=== PATIENT | male | born 1950 | race Caucasian/White ===

== ENCOUNTER 2020-09-23 14:52 | Emergency (ER) | payer MEDICARE, OTHER, SELFPAY ==
--- NOTE | ~2020-09-23 | XR_ITS ---
EXAMINATION: XR chest 2V DATE: 09/23/2020 15:38 INDICATION: Epigastric pain TECHNIQUE: PA and lateral views of the chest were obtained. COMPARISON: None FINDINGS: The lungs are clear with no focal airspace opacities, pulmonary edema, pleural effusion or pneumothor ax. The cardiomediastinal silhouette is normal. Calcified AP window lymph nodes consistent with old g ranulomatous disease. Moderate thoracic spondylosis with mild anterior wedging of a couple mid thorac ic vertebral bodies. There are bridging osteophytes at multiple levels in the spine, consistent with diffuse idiopathic skeletal hyperostosis (DISH). IMPRESSION: 1. No acute cardiopulmonary disease. Reviewed, dictated and finalized at location A.
--- NOTE | 2020-09-23 14:53 | ECG_ITS ---
Measurements Intervals [place] Rate: 59 P: 66 TN: 167 QRS: 56 QRSD: 98 T: 60 QT: 391 QTc: 389 Interpretive Statements SINUS BRADYCARDIA BORDERLINE ECG Electronically Signed On 09-23-2020 20:02:36 CDT by Rafita Song D.O.
[2020-09-23 14:54] VITALS: BP 134/71; PULSE 65; RESP 18; TEMP 37; O2SAT 98
[2020-09-23 15:14] LABS: Basophils Percent Auto 0.4 % (0.2-1.2); Eosinophils Absolute Auto 0.1 K/mm3 (0-0.3); Eosinophils Percent Auto 0.7 % (0-4.4); Hemoglobin 15.6 g/dL (14.0-18.0); Immature Granulocyte Absolute 0.04 K/mm3 (0.00-0.031); Immature Granulocyte Percent A 0.4 % (0-0.5); Lymphocytes Absolute Auto 1.19 K/mm3 (0.9-3.2); Lymphocytes Percent Auto 12.9 % (18.3-44.2); Mean Corpuscular HGB Conc 34.7 g/dl (32-36); Mean Corpuscular Hemoglobin 30.7 pg (26-34); Mean Corpuscular Volume 88.6 fl (80-100); Mean Platelet Volume 8.7 fl (7.4-10.4); Monocytes Absolute Auto 0.4 K/mm3 (0.1-0.6); Monocytes Percent Auto 4.8 % (2.6-8.5); Neutrophils Absolute Auto 7.5 K/mm3 (1.3-6.7); Neutrophils Percent Auto 80.8 % (45.5-73.1); Platelet Count Result 243 k/mm3 (150-375); Red Blood Count 5.08 M/mm3 (4.6-6.20); Red Cell Distribution Width 11.8 % (11.5-14.5); White Blood Count 9.2 K/mm3 (4.5-10.0)
[2020-09-23 15:20] VITALS: PULSE 60
[2020-09-23 15:23] LABS: Anion Gap 10 mmol/L (8-16); Blood Urea Nitrogen 17 mg/dL (9-20); Calcium 11.2 mg/dL (8.4-10.2); Carbon Dioxide 25 mmol/L (22-30); Chloride 101 mmol/L (98-107); Estimated CRCL calculation 82 ml/min; Estimated Glomerular Filt Rate > 60; Glucose 155 mg/dL (65-110); INR 0.9; Prothrombin Time 12.3 Seconds (11.1-14.7); Sodium 136 mmol/L (137-145)
[2020-09-23 15:24] LABS: Partial Thromboplastin Time 28.1 SECONDS (22.3-36.8)
[2020-09-23 15:25] VITALS: PULSE 56; RESP 12; O2SAT 98
[2020-09-23 15:30] VITALS: BP 121/68; PULSE 57; RESP 15; O2SAT 97
[2020-09-23 15:35] LABS: Troponin I < 0.012 ng/mL (0.000-0.034)
--- NOTE | 2020-09-23 15:35 | ED.CHESTPAIN ---
HPI - Chest Pain General Chief Complaint: Chest Pain Stated Complaint: chest pain x 18 hours Time Seen by Provider: 09/23/20 15:22 History of Present Illness HPI narrative: Patient presents with epigastric pain that started last night persisted throughout the evening and is still present but improved. Pain is a pressure sensation. Where the symptoms usually resolved with Tums or Gas-X however this episode did not so long to come in for evaluation. Denies any nausea or vomiting denies any lightheadedness denies any shortness of breath. Pain does not radiate anywhere there are no clear aggravating or alleviating factors Related Data Home Medications Medication Instructions Recorded Confirmed aspirin 81 mg chewable tablet 81 mg PO DAILY 08/10/19 08/28/20 atorvastatin 20 mg tablet 20 mg PO DAILY 08/10/19 08/28/20 lisinopril 10 mg tablet 10 mg PO DAILY 08/10/19 08/28/20 Allergies Allergy/AdvReac Type Severity Reaction Status Date / Time No Known Allergies Allergy Mild Verified 12/21/18 11:29 Review of Systems Review of Systems: CONSTITUTIONAL: Denies fever, chills, or sweats. EYES: Denies visual changes, redness, or discharge. ENT: Denies rhinorrhea, congestion, sore throat, or otalgia. CARDIOVASCULAR: Denies chest pain, palpitations, or edema. RESPIRATORY: Denies cough or dyspnea. GASTROINTESTINAL: Denies nausea, vomiting, or diarrhea. GENITOURINARY: Denies dysuria or hematuria. SKIN: Denies rash or itching. MUSCULOSKELETAL: Denies back pain, joint pain, or myalgia. NEUROLOGIC: Denies headache, numbness, dizziness, or weakness. PSYCHIATRIC: Denies anxiety or depression. All systems reviewed & are unremarkable except as noted in HPI and below PMFSH Past Medical History Medical History BMI 27.0-27.9,adult Chronic low back pain with right-sided sciatica Dupuytren's contracture of right hand Essential (primary) hypertension Hyperlipidemia Mixed hyperlipidemia Nocturia Overweight (BMI 25.0-29.9) Tobacco use disorder, continuous Surgical History Surgical History History of cholecystectomy Hx of hand surgery (~2019) Family History Family History Mother COPD (chronic obstructive pulmonary disease) Heart failure Father No problems noted. Sibling , 38 years old at time of Acute myocardial infarction Social History Social History Smoking status: Current every day smoker ( 8 cigars per week) Tobacco type: cigars Alcohol intake: current Drinks per week: 8 Alcohol use details: beer Substance use: never Substance use type: does not use Exam Narrative: GENERAL: Well-appearing, well-nourished, and in no acute distress. HEAD: Normocephalic, atraumatic. EYES: PERRLA and EOMI. ENT: Nares clear, no rhinorrhea or epistaxis. Mucous membranes moist. NECK: Supple. No masses. No JVD CHEST: Clear to auscultation. No respiratory distress. No wheezes rales or rhonchi HEART: Regular rate and rhythm. No murmur heard. Normal peripheral pulses. ABDOMEN: Mild tenderness with deep palpation epigastric area soft, nondistended, normal active bowel sounds. EXTREMITIES: Normal range of motion. No edema. SKIN: Warm, dry, no rash. NEURO: No focal deficits. Alert and oriented x3. PSYCH: Normal mood and affect. Course Reevaluation(s) Reevaluation #1: Reports feeling much improved after GI cocktail work-up and plan reviewed with patient Date: 09/23/20 Time: 16:39 Vital Signs Vital signs: Vital Signs Temperature 37.0 C 09/23/20 14:54 Pulse Rate 65 09/23/20 14:54 Respiratory Rate 18 09/23/20 14:54 Blood Pressure 134/71 09/23/20 14:54 Pulse Oximetry 98 09/23/20 14:54 Temperature 37.0 C 09/23/20 14:54 Pulse Rate 61 09/23/20 17:
[2020-09-23 16:11] LABS: Alanine Aminotransferase 31 U/L (4-50); Albumin Level 4.6 g/dL (3.5-5.1); Alkaline Phosphatase 74 U/L (38-126); Aspartate Amino Transferase 28 U/L (17-59); Lipase 41 U/L (23-300)
[2020-09-23] MEDS: MAG HYDROX/AL HYDROX/SIMETH 30 ML UDC PO (16:12)
[2020-09-23] MEDS: LIDOCAINE HCL 2% VISC SOLN 15 ML UDC 20 ML PO (16:12)
[2020-09-23] MEDS: SODIUM CHLORIDE 0.9% IV 500 ML 999 ML IV CONT (16:12)
[2020-09-23 16:17] VITALS: BP 128/74; PULSE 61; RESP 17; O2SAT 99
[2020-09-23 17:00] VITALS: BP 134/76; PULSE 61; RESP 17; O2SAT 98
== END 2020-09-23 17:17 | disposition home or self-care (01) ==
PROVIDERS: Emergency Medicine; Emergency Provider Emergency Medicine; PCP Family Medicine
DX: K29.70 Gastritis, unspecified, without bleeding (principal); I10 Essential (primary) hypertension; E78.2 Mixed hyperlipidemia; M72.0 Palmar fascial fibromatosis [Dupuytren]; E66.3 Overweight; Z68.26 Body mass index [BMI] 26.0-26.9, adult; F17.290 Nicotine dependence, other tobacco product, uncomplicated; Z79.82 Long term (current) use of aspirin; G89.29 Other chronic pain; M54.41 Lumbago with sciatica, right side
CPT/HCPCS: 36415; 71046; 80048; 80076; 83690; 84484; 85025; 85610; 85730; 93005; 96360; 99284; A9270; J7040

== ENCOUNTER 2022-01-10 00:53 | Day surgery (SDC) | payer MEDICARE, OTHER, SELFPAY ==
--- NOTE | 2021-12-31 13:32 | PC.NURSE ---
Report to the Outpatient Waiting Room, entrance under the green pavilion located off [facility], at time _0600 on date __01/10/22 . Planned Procedure Time: _0730 . Time changes happen often and if your time is changed the preop area will call you the afternoon before. - You and your visitor will be asked to self-screen and do not enter if you have any COVID symptoms. - Only one visitor is requested with a max of two and NO children visitors are allowed at this time. - The patient visitor may be requested to leave or wait in car when not with patient due to distancing restrictions. - A mask is optional within the hospital. Patients may have clear liquids (water, carbonated beverages, clear teas, apple juice) until 3 hours prior to surgery with a maximum of 20 ounces. - No food from midnight until time of surgery - Infants may have breast milk until 4 hours before surgery, formula 6 hours prior to surgery. - Children will be allowed to drink immediately following surgery. If applicable, please bring a bottle or sippy cup to assist with drinking. Juice, water, soda, and popsicles are readily available. For infants on formula, please bring formula the day of surgery. Pacifiers are allowed. Take the following medications with a SIP of water the morning of surgery: __NONE Medications to discontinue per physician NONE Date to take last dose Please no make-up, nail latvian, hairspray, perfume, deodorant, or body powder the day of surgery. No jewelry (including any body piercings) or valuables the day of surgery, leave them at home. Please take a shower or bath the night before, or the morning of, surgery with an antibacterial soap. Wear comfortable, loose fitting clothing. Children are encouraged to wear pajamas. - Jewelry must be removed prior to entering the operating room. Rings and piercings that are not removed may be cut off. - The hospital will not accept responsibility for valuables. - Please leave all valuables, including medications, at home the day of surgery. If you are going home after surgery, a licensed regional tanker truck driver must drive you home. - NO public transportation without another adult if you receive anesthesia. - We recommend that an adult stay with you for 24 hours following discharge. - We also recommend that you do not drive, make important decision, drink alcoholic beverages, or take any drugs that were not prescribed by your health care provider for at least 24 hours after your discharge time. For Pediatric surgeries, we recommend two adults accompany the child home. Follow any additional instructions given to you from your surgeon. If you or anyone in your household have experienced Covid symptoms in the past week, please notify your surgeon or the nurse liaison at the phone number below for possible testing. Telephone instructions given to ___PATIENT and asked if any additional questions and then verbalized understanding. Patient advised to call surgeon office or pre surgery nurse liaison [phone] if any additional questions.
[2021-12-31 13:36] VITALS: BMI 25.5
--- NOTE | 2022-01-06 18:52 | PM.IMHP ---
H&P: HPI History of Present Illness Date/Time: 01/06/22 18:52 Chief Complaint: Dupuytren's contracture of the right hand Narrative: Mr. Kelly is a 71-year-old male who has come for surgical treatment of 2 Dupuytren's contracture and the right 4th and 5th rays primarily. He underwent a left partial palmar fasciectomy for Dupuytren's disease in 2019 and was very pleased with the outcome. currently his right 4th and 5th metacarpophalangeal joints are contracted at least 90?. There are additional contractures of the proximal interphalangeal joints that are significant. He is reminded that several incisions may be necessary. There are risks for injury to the digital nerves and the tendons. There is also risk to the skin that may result in decreased sensation, stiffness, poor healing or new contractures. There may be a need for therapy to resolve some of these issues. There may also be a need for additional surgery to correct certain issues that might arise from this surgery. He would like to proceed. He will remain on his aspirin Review of Systems Review of Systems: All systems reviewed & are unremarkable except as noted in HPI and below ENT: Comments: hearing deficit PMFSH Past Medical History Medical History BMI 25.0-25.9,adult BMI 27.0-27.9,adult Chronic low back pain with right-sided sciatica Constipation Dupuytren's contracture of right hand Essential (primary) hypertension GERD (gastroesophageal reflux disease) Hyperlipidemia Mixed hyperlipidemia Nocturia Overweight (BMI 25.0-29.9) Tobacco use disorder, continuous Surgical History Surgical History History of cholecystectomy Hx of hand surgery (~2019) Family History Family History Mother COPD (chronic obstructive pulmonary disease) Heart failure Father No problems noted. Sibling , 38 years old at time of Acute myocardial infarction Social History Social History Smoking status: Current every day smoker Tobacco type: cigars Additional smoking assessment comments: CURRENTLY SMOKES CIGARS 2 X WK X 30 YRS.NEVER SMOKED CIGARETTES Alcohol intake: current Drinks per week: 4 Alcohol use details: beer Substance use: never Substance use type: does not use Living arrangements: with family Spiritual care concerns: No Meds Home Medications and Allergies Home Medications Medication Instructions Recorded Confirmed Type aspirin 81 mg chewable tablet 81 mg PO DAILY 08/10/19 12/31/21 History atorvastatin 20 mg tablet 20 mg PO DAILY 08/10/19 12/31/21 History lisinopril 10 mg tablet 10 mg PO DAILY 08/10/19 12/31/21 History famotidine 20 mg tablet (Pepcid) 20 mg PO DAILY 03/13/21 12/31/21 History polyethylene glycol 3350 17 17 g PO DAILY PRN constipation 09/18/21 12/31/21 History gram/dose oral powder (Miralax) nitroglycerin 0.4 mg sublingual 0.4 mg sublingual PRN PRN Chest 12/31/21 12/31/21 History tablet Pain Allergies Allergy/AdvReac Type Severity Reaction Status Date / Time morphine AdvReac Hallucinati Verified 12/31/21 13:20 ng Exam Const: General: cooperative, healthy appearing and no acute distress Nutritional Appearance: well nourished Orientation/consciousness: patient oriented x3 HENMT: Head: normal to inspection Ears: hearing grossly impaired Face and sinus: normal facial exam Chest: Chest palpation & inspection: normal inspection of the chest Resp: Effort & Inspection: normal respiratory effort Cardio: Rhythm: regular rhythm GI: Inspection: normal to inspection : General: Yes deferred Skin: Other: marked Dupuytren's cords of the right hand involving the 4th and 5th digits Neuro: General: patient oriented x3 and Normal ligh
[2022-01-10] VITALS (7 sets, daily range): BP systolic 109–136; BP diastolic 60–78; PULSE 48–58; RESP 10–18; TEMP 36.2–36.3; O2SAT 99–100
--- NOTE | 2022-01-10 05:58 | ECG_ITS ---
Measurements Intervals [place] Rate: 45 P: 90 [place]: 206 QRS: 46 QRSD: 101 T: 39 QT: 432 QTc: 377 Interpretive Statements MARKED SINUS BRADYCARDIA ABNORMAL ECG COMPARED TO ECG 09/23/2020 14:59:48 NO SIGNIFICANT CHANGES Electronically Signed On 01-10-2022 11:21:18 [employer] by Bart Stephenson M.D.
--- NOTE | 2022-01-10 07:04 | WPDANESEPPF ---
Anes - Initial Pre Proc Eval Procedure: Operation Date: 01/10/22 07:30 Proposed Procedures p Right Partial Palmar Fasciectomy Fourth and Fifth Digits - Ronald Hernandez MD Date/Time: 01/10/22 07:04 Surgeon: Ronald Hernandez MD Pre Op Diagnosis: Dupuytrens Contracture 4th & 5th Rays Rt Hand Patient Data Age: 71 Gender: M Height: 1.82 m Weight: 84.4 kg Allergies Allergy/AdvReac Type Severity Reaction Status Date / Time morphine AdvReac Hallucinati Verified 12/31/21 13:20 ng Home Medications Medication Instructions Recorded Confirmed Type aspirin 81 mg chewable tablet 81 mg PO DAILY 08/10/19 12/31/21 History atorvastatin 20 mg tablet 20 mg PO DAILY 08/10/19 12/31/21 History lisinopril 10 mg tablet 10 mg PO DAILY 08/10/19 12/31/21 History famotidine 20 mg tablet (Pepcid) 20 mg PO DAILY 03/13/21 12/31/21 History polyethylene glycol 3350 17 17 g PO DAILY PRN constipation 09/18/21 12/31/21 History gram/dose oral powder (Miralax) nitroglycerin 0.4 mg sublingual 0.4 mg sublingual PRN PRN Chest 12/31/21 12/31/21 History tablet Pain Patient hx anesthesia problems: none Family hx anesthesia problems: none Results Review: All pre-operative results and documents have been reviewed as part of the pre-operative evaluation. [facility] Past Medical History Medical History BMI 25.0-25.9,adult BMI 27.0-27.9,adult Chronic low back pain with right-sided sciatica Constipation Dupuytren's contracture of right hand Essential (primary) hypertension GERD (gastroesophageal reflux disease) Hyperlipidemia Mixed hyperlipidemia Nocturia Overweight (BMI 25.0-29.9) Tobacco use disorder, continuous Surgical History Surgical History History of cholecystectomy Hx of hand surgery (~2019) Family History Family History Mother COPD (chronic obstructive pulmonary disease) Heart failure Father No problems noted. Sibling , 38 years old at time of Acute myocardial infarction Social History Social History Smoking status: Current every day smoker Tobacco type: cigars Additional smoking assessment comments: CURRENTLY SMOKES CIGARS 2 X WK X 30 YRS.NEVER SMOKED CIGARETTES Alcohol intake: current Drinks per week: 4 Alcohol use details: beer Substance use: never Substance use type: does not use Living arrangements: with family Spiritual care concerns: No Anes - Eval Final PreProcedure Day of Procedure 01/10/22 07:04 Patient weight: overweight Heart: regular rate and rhythm Lungs: decreased breath sounds Airway: Mallampati scale class II Neurological: alert and oriented Last oral intake: >/= 8 hours ASA classification: III Emergent: no Anesthetic plan: proceed Anesthesia type and monitoring: general GIVS and standard monitoring Results Review: All pre-operative results and documents have been reviewed as part of the pre-operative evaluation. Informed Consent: The patient's anesthetic plan and its attendant risks and benefits were discussed with the patient/family/POA. Questions were solicited and answers provided to the satisfaction of the patient/family/POA.
[2022-01-10] MEDS: LACTATED RINGERS 1,000 ML 30 ML IV CONT ×2 (07:06→10:08)
--- NOTE | 2022-01-10 07:14 | WPDHPUPDATE1 ---
History and Physical Update Update Date/Time: 01/10/22 07:14 History and Physical has been reviewed, including an updated exam of the patient. There are NO changes in the patient's condition. Risks, benefits, and alternatives have been discussed and questions answered. Patient agrees to proceed with procedure.
[2022-01-10] MEDS: ceFAZolin SODIUM 1 GM VIAL 2 GM IV PUSH (09:07)
[2022-01-10] MEDS: LIDO 1%/EPINEPHRINE/PF 1:200,000 30 ML VIAL XX (09:43)
[2022-01-10] MEDS: BACITRACIN OINTMENT 15 GM TUBE 1 APPLIC TOPICAL (10:02)
--- NOTE | 2022-01-10 10:27 | W.PM.PROC2 ---
Procedure Note - Detailed Date of Procedure 01/10/22 Pre-op Diagnosis Dupuytrens Contracture 4th & 5th Rays Rt Hand Post-op Diagnosis Same Procedure Performed Right partial palmar fasciectomy with full-thickness skin graft 5 sq cm Surgeon Ronald Hernandez MD Support Architect Pat Molina Anesthesia General Description of Procedure The right 4th and 5th digits were marked on the patient in the holding area. He was taken to the operating room where he was placed supine on the operating table. Time-out was held confirmed. He was given general anesthesia and the right upper extremity was prepped and draped in usual fashion. The sites were carefully marked for incision. The wound area was locally infiltrated with 1% lidocaine with epinephrine. The extremity was exsanguinated and the tourniquet inflated to 250 mmHg. The incisions were made as designed. The skin flaps were carefully elevated fairly thinly. Neurovascular bundles were identified in all areas and preserved. The Dupuytren's fasciitis in the palm was excised. The 2nd incision was made as a volar midline incision in the small finger. Skin flaps were again elevated to both sides and the neurovascular bundles identified near the metacarpophalangeal joint. There was no significant spiral cording in this finger. The neurovascular bundles were identified out to the distal interphalangeal joint. The Dupuytren's fasciitis was removed. The digit extended well but lagged about 10? of extension. The A1 migue was incised which provided a small amount of increased extension. The ring finger had no cords beyond the metacarpophalangeal joint. The tourniquet was released and Z-plasties were made on the palmar small finger. These were rotated and inset. Significant deficit of skin resulted after extending the digits and we elected to apply a full-thickness skin graft. A call was made to the and the planned for this was explained. We had not discussed skin grafting as a means of closure prior to the surgery. The graft was harvested from the right thigh. This was a full-thickness graft. The donor site was closed with intradermal 3-0 Monocryl sutures and glue. The graft was defatted and inset to the skin with 450 interrupted nylon. We tried to pull some fatty tissue and into the quilting sutures of the throughout the mid graft area of voiding impingement on any nerves or arteries. A bulky bandage was applied with some compression using the Kerlix roll and an Americo wrap. No splint was applied. Specific instructions regarding care of this graft is supplied to the patient The patient was given 2 g of Ancef in the of the skin graft. He is discharged home with instructions care follow-up and a prescription for cephalexin 15. And hydrocodone 5/325 6. Estimated Blood Loss 20 Tourniquet Time 75 Drains No Packing No Pathology None sent Complications No immediate complications Disposition Same day
== END 2022-01-10 12:00 | disposition home or self-care (01) ==
PROVIDERS: PCP Family Medicine; Visit Provider Plastic Surgery
PROC: (CPT 26045; principal; 2022-01-10 07:30)
DX: M72.0 Palmar fascial fibromatosis [Dupuytren] (principal); I10 Essential (primary) hypertension; E78.2 Mixed hyperlipidemia; K21.9 Gastro-esophageal reflux disease without esophagitis; K59.00 Constipation, unspecified; Z79.82 Long term (current) use of aspirin; F17.290 Nicotine dependence, other tobacco product, uncomplicated
CPT/HCPCS: 26121; 26123; 93005; A9270; J0690; J1100; J2405; J2704; J3010; J7120

== ENCOUNTER 2022-02-26 10:46 | Emergency (ER) | payer MEDICARE, OTHER, SELFPAY ==
[2022-02-26 10:58] VITALS: BP 103/58; PULSE 56; RESP 16; TEMP 37; O2SAT 98
--- NOTE | 2022-02-26 11:35 | ED.GENADULT ---
HPI - General Adult General Chief complaint: Urogenital-Male Stated complaint: uti Source: patient Limitations: no limitations History of Present Illness HPI narrative: Patient presents for what he believes to be urinary tract infection. He has experienced dysuria for the last two days. He denies any fever, chills, abdominal pain, flank pain, hematuria, urinary frequency, decreased force of urinary stream, hesitancy, nausea, vomiting, testicular pain, urethral discharge. He is not sexually active. He denies any history of UTIs. He states he does have routine PSAs drawn but does not believe he has had one in the last year. No hx of prostate cancer, prostatitis or BPH per his reports. It sounds like he had ureter dilatation in the remote past for narrowing of the ureter. He has some chronic low back pain which is unchanged from his baseline. No additional complaints or concerns. Related Data Home Medications Medication Instructions Recorded Confirmed aspirin 81 mg chewable tablet 81 mg PO DAILY 08/10/19 01/10/22 atorvastatin 20 mg tablet 20 mg PO DAILY 08/10/19 01/10/22 lisinopril 10 mg tablet 10 mg PO DAILY 08/10/19 01/10/22 famotidine 20 mg tablet (Pepcid) 20 mg PO DAILY 03/13/21 01/10/22 polyethylene glycol 3350 17 17 g PO DAILY PRN constipation 09/18/21 01/10/22 gram/dose oral powder (Miralax) nitroglycerin 0.4 mg sublingual 0.4 mg sublingual PRN PRN Chest 12/31/21 01/10/22 tablet Pain Allergies Allergy/AdvReac Type Severity Reaction Status Date / Time morphine AdvReac Hallucinati Verified 01/10/22 07:15 ng Review of Systems Review of Systems: CONSTITUTIONAL: Denies fever, chills, or sweats. EYES: Denies visual changes, redness, or discharge. ENT: Denies rhinorrhea, congestion, sore throat, or otalgia. CARDIOVASCULAR: Denies chest pain, palpitations, or edema. RESPIRATORY: Denies cough or dyspnea. GASTROINTESTINAL: Denies abdominal pain, nausea, vomiting, or diarrhea. GENITOURINARY: Reports dysuria. Denies hematuria, frequency, hesitancy, urgency, urethral discharge, testicular pain. SKIN: Denies rash or itching. MUSCULOSKELETAL: Reports chronic low back pain, unchanged from his baseline. Denies any joint pain, or myalgia. NEUROLOGIC: Denies headache, numbness, dizziness, or weakness. PSYCHIATRIC: Denies anxiety or depression. [facility] Past Medical History Medical History BMI 25.0-25.9,adult BMI 27.0-27.9,adult Chronic low back pain with right-sided sciatica Constipation Dupuytren's contracture of right hand Essential (primary) hypertension GERD (gastroesophageal reflux disease) Hyperlipidemia Mixed hyperlipidemia Nocturia Overweight (BMI 25.0-29.9) Tobacco use disorder, continuous Surgical History Surgical History History of cholecystectomy Hx of hand surgery (~2019) Family History Family History Mother COPD (chronic obstructive pulmonary disease) Heart failure Father No problems noted. Sibling , 38 years old at time of Acute myocardial infarction Social History Social History Smoking status: Current every day smoker Tobacco type: cigars Additional smoking assessment comments: CURRENTLY SMOKES CIGARS 2 X WK X 30 YRS.NEVER SMOKED CIGARETTES Alcohol intake: current Drinks per week: 4 Alcohol use details: beer Substance use: never Substance use type: does not use Gender identity (if verbalized by the patient): Male Sexual Orientation (if Verbalized by the Patient): Straight or Heterosexual Spiritual care concerns: No Exam Narrative: GENERAL: Well-appearing, well-nourished, and in no acute distress. HEAD: Normocephalic, atraumatic. EYES: PERRLA and EOMI. ENT: Nares clear, no
== END 2022-02-26 11:36 | disposition home or self-care (01) ==
PROVIDERS: Emergency Provider Nurse Practitioner; PCP Family Medicine
DX: N39.0 Urinary tract infection, site not specified (principal); B95.2 Enterococcus as the cause of diseases classified elsewhere; F17.290 Nicotine dependence, other tobacco product, uncomplicated; I10 Essential (primary) hypertension; K21.9 Gastro-esophageal reflux disease without esophagitis; E78.2 Mixed hyperlipidemia; Z79.82 Long term (current) use of aspirin
CPT/HCPCS: 81003; 87077; 87086; 87186; 99213; G0463

== ENCOUNTER 2022-03-28 10:30 | Outpatient (RCR) | payer MEDICARE, OTHER, SELFPAY ==
--- NOTE | 2022-02-21 11:18 | OTOPEVAL1 ---
Assessment and note entered by Kang Ramírez, OTR/[facility], CHT Evaluation Information Assessment Status Evaluation Diagnosis (R) hand stiffness Subjective Information Patient presents ~6 weeks following surgical excision of Dupuytren's fascia of the right hand. He reports that he can now get his hand in his pocket. 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 Reported Pain Level Pain Score 2: Self Report Assessment OT Clinical Summary Patient referred to outpatient hand therapy with right hand stiffness after palmar fasciectomy secondary to Dupuytren's contracture. Skilled OT indicated to facilitate optimal hand use for ADLs through HEP instruction, manual therapy, modalities, and progression to strengthening. Plan of Care Interventions Therapeutic Exercise,Manual Therapy,Therapeutic Activities,Hot Pack/Cold Pack,Ultrasound,Paraffin OT Services Indicated Yes Treatment Frequency and 1x/week x3 weeks Duration These treatments will address the objective and functional deficits as defined above. The patient will be advanced safely and appropriately in order for the patient to progress towards his/her prior level of function. Additional exercises will be introduced and as well as a comprehensive home exercise program upon discharge, if needed, ?to ensure carryover of functional gains achieved in the clinic. This treatment plan has been reviewed and agreement upon by the patient.
--- NOTE | 2022-03-14 10:19 | OTOPPROG ---
Assessment and note entered by Kang Ramírez, OTR/[facility], CHT Evaluation Information Assessment Status Progress Diagnosis (R) hand stiffness Subjective Information Patient presents ~6 weeks following surgical excision of Dupuytren's fascia of the right hand. He reports that he can now get his hand in his pocket. He states his hand has become more flexible and he is having an easier time using his hand with gripping and ADLs, using tools, etc. He has been able to hold a golf club. Reports continued residual stiffness at the small finger DIP joint which restricts full gross fist with gripping. At the start of care his small finger was 3 cm away from touching the palm and today the small finger is touching. 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 He is in agreement to continue therapy for 2 more sessions as he benefits from use of thermal modalities and manual therapy for the scar tissue. Assessment OT Clinical Summary Patient referred to outpatient hand therapy with right hand stiffness after palmar fasciectomy secondary to Dupuytren's contracture. He has made good progress with functional ROM, being able to touch the small finger to the palm today. He continues to have residual stiffness and weakness and will benefit from continued skilled therapy for use of modalities, manual therapy, and progression of strengthening to facilitate optimal functional hand use. Plan of Care Interventions Therapeutic Exercise,Manual Therapy,Therapeutic Activities,Hot Pack/Cold Pack,Ultrasound,Paraffin OT Services Indicated Yes Treatment Frequency and 1x/week for an additional 2 weeks Duration These treatments will address the objective and functional deficits as defined above. The patient will be advanced safely and appropriately in order for the patient to progress towards his/her prior level of function. Additional exercises will be introduced and as well as a comprehensive home exercise program upon discharge, if needed, ?to ensure carryover of functional gains achieved in the clinic. This treatment plan has been reviewed and agreement upon by the patient.
--- NOTE | 2022-03-28 11:15 | OTOPDC ---
Assessment and note entered by Kang Ramírez, OTR/L, CHT Evaluation Information Assessment Status Discharge Diagnosis (R) hand stiffness Subjective Information Patient presents ~8 weeks following surgical excision of Dupuytren's fascia of the right hand. He reports that he can now get his hand in his pocket. He states his hand has become more flexible and he is having an easier time using his hand with gripping and ADLs, using tools, etc. He has been able to hold a golf club, still working on being able to interlock his fingers, but reports progress. Reports continued residual stiffness at the small finger DIP joint which restricts full gross fist with gripping. At the start of care his small finger was 3 cm away from touching the palm and today the small finger is touching. Right oak tanner strength improved another 5 lbs. and is measuring 78 lbs. Norm is 85 lbs. Reported Pain Level Pain Score 0: Self Report Additional Pain Score Comments Reporting no pain. States his hand gets sore after exercise. Assessment OT Clinical Summary Patient referred to outpatient hand therapy with right hand stiffness after palmar fasciectomy secondary to Dupuytren's contracture. He has made good progress with functional ROM, being able to touch the small finger to the palm today. His functional oak tanner strength is progressing toward normal limits. He is currently independent with all HEPs and is ready for discharge. Plan of Care OT Services Indicated No
== END 2022-03-29 10:32 | disposition home or self-care (01) ==
LOC: ANHOT 10:30
PROVIDERS: PCP Family Medicine; Visit Provider Plastic Surgery
DX: Z48.89 Encounter for other specified surgical aftercare (principal); M25.641 Stiffness of right hand, not elsewhere classified
CPT/HCPCS: 97018; 97110; 97140; 97165

== ENCOUNTER → 2023-05-22 08:46 | Outpatient (CLI) | payer MEDICARE, OTHER, SELFPAY ==
--- NOTE | ~2023-05-22 | XR_ITS ---
EXAMINATION: XR lumbar spine min 4V DATE: 05/22/2023 09:00 INDICATION: Lumbago with sciatica, right-sided. TECHNIQUE: 5 views of lumbar spine were obtained. COMPARISON: None. FINDINGS: There is 6 degrees dextrocurvature of lumbar spine. There is mild chronic anterior wedging of L1 and L4 vertebral bodies. There is moderately decreased disc height at L4-L5 and severely decrea sed disc height at L5-S1. There are endplate osteophytes at all levels. There is multilevel facet emperatriz nt osteoarthritis, severe in lower lumbar spine. IMPRESSION: 1. Severe lumbar spondylosis. Reviewed, dictated and finalized at location A.
== END ==
PROVIDERS: PCP Family Medicine; Visit Provider Family Medicine
DX: M54.41 Lumbago with sciatica, right side (principal); M47.896 Other spondylosis, lumbar region
CPT/HCPCS: 72110

== ENCOUNTER 2023-06-26 09:00 | Outpatient (RCR) | payer MEDICARE, OTHER, SELFPAY ==
--- NOTE | 2023-05-29 09:51 | OPREHPOC ---
Outpatient Therapy Plan of Care This is a Multidisciplinary Plan of Care that may contain components documented by all disciplines (PT, OT, and ST.) PT Problem 1 PT Problem #1 Knowledge Deficit PT Goal 1 Goal *indep with HEP * good posture with exercises PT Problem 2 PT Problem #2 Pain PT Goal 1 Goal 1* pain rating at worst of 4/10 2* self assessment Oswestry rating of 12% limitation in activity level PT Problem 3 PT Problem #3 Impaired Flexibility PT Goal 1 Goal increase flexibility of trunk and hips, to improve mobility and decrease strain on spine: hamstring length with supine SLR 1* R 55' 2* L 65' anterior hip/quad length with prone knee flexion 3* R 110' 4* L 110' 5* with supine R and L piriformis stretch, pt report equal tightness PT Problem 4 PT Problem #4 Impaired Strength PT Goal 1 Goal increase strength of trunk and hips, to improve stability to spine 1* supine and side lying mat strengthening exercises 20 reps with good control 2* single leg standing R 10 seconds 3* single leg standing L 10 seconds
--- NOTE | 2023-05-29 09:51 | PTOPEVAL1 ---
Assessment and note entered by Elke Boswell, PT Evaluation Information Diagnosis lumbago, sciatica R Onset Nov 2022 Subjective Information chronic issues with back, about 30 years; now worse; have been going to chiropractor once/wk and had adjustments to fix back, now does not help the pain anymore; x ray: severe lumbar spondylosis, osteophytes at all levels, anterior wedge of L 1 and L 4; dextrocurvature Activity: retired, golf and yard work, do things with grandkids; last year stopped working at [employer] and walking less; do not do regular exercise for fitness at home; stretch a little before [employer]; Reported Pain Level Pain Score Self Report Additional Pain Score Comments pain range of past week 2- 8/10; stabbing pain when move wrong; catch in back; mostly R but sometimes in L; tightness of hamstrings radicular into R & L LE, to hamstrings; mid lumbar increase pain: sit to stand, twisting trunk decrease pain: sit/rest, lean trunk forward, heating pad; does not take any meds for back Assessment PT Clinical Summary Jeremy has the diagnosis of lumbago with sciatica. He has a history of chronic back pain, with recent increase in pain. Self assessment with Oswestry rating of 22% limitation in activity level. He is retired, recently stopped working at the [employer] and doing a lot of walking. Xray is positive for bony changes of lumbar spine. He does not perform any fitness exercises. With the evaluation: he has tightness over lumbar spine and hips--anterior hip/quad, hamstring and piriformis muscles; pain is increased with trunk extension and R hamstring stretch; weakness over trunk and hips; poor body mechanics and positioning. Skilled PT services are indicated for modalities to decrease pain and spasms, therapeutic exercises to increase strength and flexibility of trunk and hips with education for HEP, body mechanics and posture correction.
--- NOTE | 2023-06-26 09:43 | PTOPDC ---
Assessment and note entered by Elke Boswell, PT Discharge Information Assessment Status Discharge Diagnosis lumbago, sciatica R Onset Nov 2022 Subjective Information I have learned exercises for my back; no longer have the sharp, stabbing pains in my back; have been able to golf with my grandson and mow the yard; back feels better as the day goes on and move around some; ready to be done with coming in for therapy; will do the exercises at home. Reported Pain Level Pain Score Self Report Pain Score Self Report Additional Pain Score Comments pain range 0-4/10; in both sides of low back; increase pain: more activity; not one certain thing decrease pain: stretches; over the counter med- only 1 in the past week; have not been using any heat or ice, trying to do without it; Assessment PT Clinical Summary Jeremy has received 7 PT sessions. He has improved in all areas: pain rating decreased from 2-8/10 to 0-4/10; self assessment Oswestry from 22% to 12% limitation in activity level; increase strength of trunk and hips; increase flexibility of R and L hamstrings, piriformis and anterior hip/quad muscle groups; has returned to golf and yard work. education completed for HEP, body mechanics and pain management. The goals were partially achieved. Discharge PT and he is to continue with his HEP and managing pain with activity/rest balance. Plan of Care PT Services Indicated No
== END 2023-06-27 11:20 | disposition home or self-care (01) ==
LOC: ANHPT 09:00
PROVIDERS: PCP Family Medicine; Visit Provider Family Medicine
DX: M54.41 Lumbago with sciatica, right side (principal); G89.29 Other chronic pain
CPT/HCPCS: 97110; 97140; 97161; 97530